=== PATIENT | male | born 1960 | race Asian ===

== ENCOUNTER → 2017-05-09 | Outpatient (CLI) | payer MEDICARE | LOC: M CARPUL 09:53 | DX: R94.31 Abnormal electrocardiogram [ECG] [EKG] (principal); R93.1 Abnormal findings on diagnostic imaging of heart and coronary circulation | CPT/HCPCS: 93306 ==

== ENCOUNTER 2018-08-06 10:39 | Day surgery (SDC) | payer OTHER, MEDICARE ==
[~2018-08-06] VITALS: Ht 160 cm; Wt 83.5 kg
[~2018-08-06 10:39] MED LIST: ATOR80TA59 PO; BUPR10TASR PO; EXCETAB80 PO; LIDO5DIS41 TD; LORT5TAB PO; LOSA25TA14 PO; NAPR1TAB41 PO; NS 1,000 ML IV ONE; OMEP20CA3 PO; PRIL40CA PO; SING10TA32 PO; TRAZ-252 PO; ULTR50TA8 PO; WELL100T2 PO; ZOCO40TA PO; ZYLO300T6 PO
[2018-08-06] MEDS ORDERED: VITAD1000T PO (11:22)
[2018-08-06] MEDS ORDERED: PROPOFOL 200 MG/20 ML VIAL As Ordered ONE ×2 (12:03→12:24)
--- NOTE | 2018-08-06 12:30 | ROOR ---
Patient Name: Janel Moss Procedure Date: 08/06/2018 12:12 PM Date of : 1960 Age: 57 Room: [facility] Gender: Male Note Status: Finalized Procedure: Total Colonoscopy to Cecum Indications: High risk colon cancer surveillance: Personal history of colonic polyps, Last colonoscopy: 2016 Providers: Betito Gallardo MD Referring MD: MARISOL ROBBINS Requesting Provider: Medicines: Monitored Anesthesia Care Complications: No immediate complications. Procedure: Pre-Anesthesia Assessment: - The heart rate, respiratory rate, oxygen saturations, blood pressure, adequacy of pulmonary ventilation, and response to care were monitored throughout the procedure. The Colonoscope was introduced through the anus and advanced to the cecum, identified by appendiceal orifice and ileocecal valve. The colonoscopy was performed without difficulty. The patient tolerated the procedure well. The quality of the bowel preparation was excellent. Findings: The perianal and digital rectal examinations were normal. Non-bleeding internal hemorrhoids were found during retroflexion. The hemorrhoids were small and Grade I (internal hemorrhoids that do not prolapse). Multiple small and large-mouthed diverticula were found in the recto-sigmoid colon, sigmoid colon and descending colon. The exam was otherwise without abnormality on direct and retroflexion views. Impression: - Non-bleeding internal hemorrhoids. - Diverticulosis in the recto-sigmoid colon, in the sigmoid colon and in the descending colon. - The examination was otherwise normal on direct and retroflexion views. - No specimens collected. - The exam was otherwise normal to the cecum. Recommendation: - Patient has a contact number available for emergencies. The signs and symptoms of potential delayed complications were discussed with the patient. Return to normal activities tomorrow. Written discharge instructions were provided to the patient. - High fiber diet. - Discharge patient to home. - Continue present medications. - Repeat colonoscopy in 5 years for screening purposes. - Return to referring physician. - The findings and recommendations were discussed with the patient's family. Betito Gallardo MD Betito Gallardo MD 08/06/2018 12:29:44 PM Electronically signed by Betito Gallardo MD Number of Addenda: 0 Note Initiated On: 08/06/2018 12:12 PM Estimated Blood Loss: Estimated blood loss: none.
[2018-08-06 12:50] VITALS: BP 129/85
== END 2018-08-06 12:58 | disposition home or self-care (01) ==
LOC: M OPP 10:39
PROVIDERS: ATTEND Internal Medicine Gastroenterology
DX: Z12.11 Encounter for screening for malignant neoplasm of colon (principal); Z86.010 Personal history of colon polyps; K64.0 First degree hemorrhoids; K57.30 Diverticulosis of large intestine without perforation or abscess without bleeding

== ENCOUNTER → 2021-10-24 | Outpatient (REF) ==
[~2021-10-24] MED LIST changes: +CHOL100029 PO; +LOSA25TA13 PO; -LOSA25TA14 PO; -NS 1,000 ML IV ONE; +OMEP1CAP73 PO; -OMEP20CA3 PO
== END ==
LOC: M RAD 09:52
PROVIDERS: ATTEND Physician Assistant Medical
DX: R06.00 Dyspnea, unspecified (principal)

== ENCOUNTER 2021-11-08 10:35 | Emergency (ER) | payer MEDICARE, OTHER ==
[~2021-11-08] VITALS: Ht 160 cm; Wt 88.5 kg
[2021-11-08 12:49] LABS: BASO # 0.1 10^3/uL (0.0-0.2); BASO % 0.7 % (0.0-1.0); EOS # 0.7 10^3/uL (0.0-0.5); HEMATOCRIT 54.5 % (42.0-52.0); HEMOGLOBIN 18.4 g/dl (13.5-17.5); LYMPH # 2.2 10^3/uL (1.5-5.0); LYMPH % 21.7 % (24.0-44.0); MEAN CORPUSCULAR HEMOGLOBIN 28.4 pg (27.0-33.0); MEAN CORPUSCULAR HGB CONC 33.8 g/dl (32.0-36.5); MONO # 0.6 10^3/uL (0.0-0.8); MONO % 6.3 % (2.0-8.0); NEUTROPHILS # 6.4 10^3/uL (1.5-8.5); PLATELET COUNT, AUTOMATED 282 10^3/uL (150-450); RED BLOOD COUNT 6.49 10^6/uL (4.30-6.10)
[2021-11-08 13:13] LABS: C REACTIVE PROTEIN QUANTITATIV 0.47 MG/DL (0.00-0.30); CREATININE FOR GFR 1.44 MG/DL (0.70-1.30); GLOMERULAR FILTRATION RATE 53.3 (>49); POTASSIUM SERUM 4.5 MEQ/L (3.5-5.1); URIC ACID 6.5 MG/DL (3.5-7.2)
[2021-11-08 13:26] LABS: ERYTHROCYTE SEDIMENTATION RATE 1 mm/hr (0-20)
[2021-11-08] MEDS ORDERED: PRED20TA PO (13:34)
[2021-11-08 14:00] VITALS: BP 130/83
== END 2021-11-08 14:16 | disposition home or self-care (01) ==
LOC: M ED 10:35
DX: M10.062 Idiopathic gout, left knee (principal); I10 Essential (primary) hypertension; M17.12 Unilateral primary osteoarthritis, left knee; Z79.899 Other long term (current) drug therapy

== ENCOUNTER → 2021-12-19 | Outpatient (REF) | payer MEDICARE, OTHER ==
[~2021-12-19] MED LIST changes: +PRED20TA PO
[2021-12-19 15:45] LABS: APPEARANCE, URINE MANUAL CLEAR (CLEAR); COLOR, URINE MANUAL YELLOW (YELLOW)
[2021-12-19 15:46] LABS: BILIRUBIN, URINE MANUAL NEGATIVE (NEGATIVE); GLUCOSE, URINE (UA) MANUAL NEGATIVE (NEGATIVE); LEUKOCYTE ESTERASE, URINE MAN NEGATIVE (NEGATIVE); NITRITE, URINE MANUAL NEGATIVE (NEGATIVE); UROBILINOGEN, URINE MANUAL NORMAL (NORMAL)
[2021-12-19 15:47] LABS: BLOOD URINE MANUAL NEGATIVE (NEGATIVE); KETONE, URINE MANUAL 1+ mg/dL (NEGATIVE); PROTEIN, URINE MANUAL TRACE mg/dL (NEGATIVE)
[2021-12-19 16:12] LABS: BACTERIA, URINE MOD AMOUNT; MUCUS, URINE MOD AMOUNT (NEGATIVE); RBC, URINE 0-1 /hpf (0-3); SQUAMOUS EPITHELIAL CELL URINE SMALL AMOUNT /hpf (SMALL AMT); WBC, URINE 0-1 /hpf (0-3)
== END ==
LOC: M SMT 15:23
PROVIDERS: ATTEND Physician Assistant
DX: R31.9 Hematuria, unspecified (principal)

== ENCOUNTER → 2022-03-23 | Outpatient (CLI) | payer OTHER | LOC: M RAD 13:53 | PROVIDERS: ATTEND Physician Assistant Medical | DX: Z12.2 Encounter for screening for malignant neoplasm of respiratory organs (principal); Z87.891 Personal history of nicotine dependence; R31.9 Hematuria, unspecified; J43.9 Emphysema, unspecified; K44.9 Diaphragmatic hernia without obstruction or gangrene; K76.0 Fatty (change of) liver, not elsewhere classified; N20.0 Calculus of kidney; K57.30 Diverticulosis of large intestine without perforation or abscess without bleeding ==

== ENCOUNTER → 2022-06-27 | Outpatient (CLI) | payer MEDICARE, OTHER ==
[~2022-06-27] MED LIST changes: +MONT-5 PO; +SIMV-254 PO; -SING10TA32 PO; -ZOCO40TA PO
== END ==
LOC: M SLEEP 20:00
PROVIDERS: ATTEND Physician Assistant Medical
DX: G47.33 Obstructive sleep apnea (adult) (pediatric) (principal)

== ENCOUNTER → 2022-12-07 | Outpatient (CLI) | payer OTHER ==
[~2022-12-07] MED LIST changes: +CHLO125TA PO; +CYCL-707 PO; +IBUP-1022 PO; +METF750T36; +METO1TAB32; +ROSU40TA4
== END ==
LOC: M SLEEP 20:00
PROVIDERS: ATTEND Physician Assistant Medical
DX: G47.33 Obstructive sleep apnea (adult) (pediatric) (principal)

== ENCOUNTER 2022-12-16 09:56 | Emergency (ER) | payer MEDICARE, OTHER ==
[~2022-12-16] VITALS: Ht 160 cm; Wt 79.1 kg
[2022-12-16 09:56] VITALS: TEMP 96.7
[~2022-12-16 09:56] MED LIST changes: -CHLO125TA PO; -IBUP-1022 PO; -METF750T36; -METO1TAB32; -ROSU40TA4
[2022-12-16] MEDS ORDERED: ONDANSETRON 4MG 2ML VIAL IV ONE (10:25)
[2022-12-16] MEDS ORDERED: MORPHINE 4 MG/ML 1ML VIAL IV ONE (10:25)
[2022-12-16] MEDS ORDERED: NS 500 ML IV ONE (10:25)
[2022-12-16 10:40] LABS: BASO # 0.1 10^3/uL (0.0-0.2); BASO % 0.8 % (0.0-1.0); EOS # 0.6 10^3/uL (0.0-0.5); EOS % 6.9 % (0.0-3.0); HEMATOCRIT 46.7 % (42.0-52.0); HEMOGLOBIN 16.6 g/dl (13.5-17.5); LYMPH # 2.2 10^3/uL (1.5-5.0); LYMPH % 24.5 % (24.0-44.0); MEAN CORPUSCULAR HEMOGLOBIN 30.2 pg (27.0-33.0); MEAN CORPUSCULAR HGB CONC 35.5 g/dl (32.0-36.5); MEAN CORPUSCULAR VOLUME 84.9 fl (80.0-96.0); MONO # 0.7 10^3/uL (0.0-0.8); MONO % 7.7 % (2.0-8.0); NEUTROPHILS # 5.5 10^3/uL (1.5-8.5); NEUTROPHILS % 59.8 % (36.0-66.0); PLATELET COUNT, AUTOMATED 250 10^3/uL (150-450); WHITE BLOOD COUNT 9.2 10^3/uL (4.0-10.0)
[2022-12-16] MEDS ORDERED: METO1TAB32 (10:55)
[2022-12-16] MEDS ORDERED: METF750T36 (10:55)
[2022-12-16] MEDS ORDERED: CHLO125TA PO (10:55)
[2022-12-16] MEDS ORDERED: ROSU40TA4 (10:55)
[2022-12-16] MEDS ORDERED: KETOROLAC 30 MG/ML 1ML VIAL IV ONE (11:00)
[2022-12-16] MEDS ORDERED: ISOVUE-370 76% 100ML VIAL As Ordered ONE (11:12)
[2022-12-16 11:15] VITALS: BP 123/79
[2022-12-16 11:41] VITALS: O2SAT 94
[2022-12-16] MEDS ORDERED: CYCL-707 PO (12:27)
[2022-12-16] MEDS ORDERED: CYCLOBENZAPRINE 10MG TABLET PO ONE (12:30)
[2022-12-16] MEDS ORDERED: IBUP-1022 PO (12:31)
== END 2022-12-16 12:42 | disposition home or self-care (01) ==
LOC: M ED 09:56
DX: R07.9 Chest pain, unspecified (principal); M54.9 Dorsalgia, unspecified; R91.8 Other nonspecific abnormal finding of lung field; I10 Essential (primary) hypertension; E78.5 Hyperlipidemia, unspecified; F41.9 Anxiety disorder, unspecified; F32.A Depression, unspecified; Z91.013 Allergy to seafood; Z79.899 Other long term (current) drug therapy; Z79.84 Long term (current) use of oral hypoglycemic drugs
CPT/HCPCS: 71045; 71275; 80047; 84484; 85025; 93005; 93041; 94760; 96374; 99285; J1885; Q9967

== ENCOUNTER 2023-04-27 20:36 | Emergency (ER) | payer OTHER ==
[~2023-04-27] VITALS: TEMP 98.1; Ht 160 cm; Wt 78.6 kg
[~2023-04-27 20:36] MED LIST changes: +CHLO125TA PO; +IBUP-1022 PO; +METF750T36; +METO1TAB32; +ROSU40TA4 PO
[2023-04-27 21:29] LABS: HEMATOCRIT 48.8 % (42.0-52.0); HEMOGLOBIN 17.3 g/dl (13.5-17.5); MEAN CORPUSCULAR HEMOGLOBIN 29.5 pg (27.0-33.0); MEAN CORPUSCULAR HGB CONC 35.5 g/dl (32.0-36.5); MEAN CORPUSCULAR VOLUME 83.3 fl (80.0-96.0); PLATELET COUNT, AUTOMATED 267 10^3/uL (150-450); RED BLOOD COUNT 5.86 10^6/uL (4.30-6.10); WHITE BLOOD COUNT 8.8 10^3/uL (4.0-10.0)
[2023-04-27 21:46] LABS: ETHYL ALCOHOL (ETHANOL) < 0.003 % (0.000-0.010)
[2023-04-27 21:48] LABS: ALBUMIN 3.6 G/DL (3.2-5.2); ALKALINE PHOSPHATASE 86 U/L (46-116); ALT/SGPT 56 U/L (7.0-40); AST/SGOT 45 U/L (<34); BILIRUBIN,DIRECT 0.2 MG/DL (<0.4); BILIRUBIN,TOTAL 0.5 MG/DL (0.3-1.2); BLOOD UREA NITROGEN 13 MG/DL (9-23); CALCIUM LEVEL 8.8 MG/DL (8.3-10.6); CARBON DIOXIDE LEVEL 24 MMOL/L (20-31); CHLORIDE LEVEL 107 MMOL/L (98-107); CREATININE FOR GFR 0.93 MG/DL (0.70-1.30); GLOMERULAR FILTRATION RATE > 60.0 (>49); GLUCOSE, FASTING 176 MG/DL (74-106); POTASSIUM SERUM 3.6 MMOL/L (3.5-5.1); SALICYLATE LEVEL < 3.0 MG/DL (<30); SODIUM LEVEL 138 MMOL/L (136-145); TOTAL PROTEIN 6.6 G/DL (5.7-8.2)
[2023-04-27 21:50] LABS: THYROID STIMULATING HORMONE 2.301 uIU/ML (0.55-4.78)
[2023-04-27] MEDS ORDERED: BUPR15TASR PO (23:28)
[2023-04-27] MEDS ORDERED: LOSA100T46 PO (23:28)
[2023-04-27] MEDS ORDERED: OMEP40CA5 PO (23:28)
[2023-04-27] MEDS ORDERED: ALLO300T2 PO (23:28)
[2023-04-27] MEDS ORDERED: METF10004 PO (23:28)
[2023-04-27] MEDS ORDERED: REFR0.5D8 OU (23:28)
[2023-04-27] MEDS ORDERED: HOME MED LIST COMPLETE! XX SCH (23:30)
[2023-04-28 02:34] LABS: AMPHETAMINES LEVEL URINE NEGATIVE (NEGATIVE); BARBITURATES URINE NEGATIVE (NEGATIVE); BENZODIAZEPINES URINE NEGATIVE (NEGATIVE)
[2023-04-28 02:35] LABS: CANNABINOIDS URINE NEGATIVE (NEGATIVE); METHADONE URINE NEGATIVE (NEGATIVE); OPIATES URINE NEGATIVE (NEGATIVE); PHENCYCLIDINE URINE NEGATIVE (NEGATIVE)
[2023-04-28 03:06] LABS: COCAINE METABOLITE URINE POSITIVE (NEGATIVE)
[2023-04-28 06:09] LABS: APPEARANCE, URINE CLEAR (CLEAR); BACTERIA, URINE AUTO NEGATIVE (NEGATIVE); BILIRUBIN, URINE AUTO NEGATIVE (NEGATIVE); BLOOD, URINE BLOOD NEGATIVE (NEGATIVE); COLOR, URINE YELLOW (YELLOW); GLUCOSE, URINE (UA) AUTO 3+ mg/dL (NEGATIVE); KETONE, URINE AUTO NEGATIVE (NEGATIVE); LEUKOCYTE ESTERASE, URINE AUTO NEGATIVE (NEGATIVE); MUCUS, URINE SMALL (NEGATIVE); NITRITE, URINE AUTO NEGATIVE (NEGATIVE); PROTEIN, URINE AUTO NEGATIVE (NEGATIVE); RBC, URINE AUTO 0 /HPF (0-3); SPECIFIC GRAVITY URINE AUTO 1.008 (1.002-1.035); SQUAMOUS EPITHELIAL CELL UR AU 0 /HPF (0-6); UROBILINOGEN, URINE AUTO 0.2 mg/dL (0.0-2.0); WBC, URINE AUTO 2 /HPF (0-3)
[2023-04-28] MEDS: ROSUVASTATIN 10 MG TAB (CRESTOR) PO SCH (13:40)
[2023-04-28] MEDS: allopurinoL 300 MG TAB PO SCH (13:40)
[2023-04-28] MEDS: LOSARTAN 50MG TABLET PO SCH (13:40)
[2023-04-28] MEDS: OMEPRAZOLE 20MG CAP PO SCH (14:37)
[2023-04-28] MEDS ORDERED: metFORMIN (GLUCOPHAGE) 1000MG TABLET PO SCH (21:00)
[2023-04-28] MEDS ORDERED: traZODone 50 MG TAB PO SCH (21:00)
[2023-04-28 22:42] VITALS: BP 163/98; TEMP 98.1; O2SAT 99
== END 2023-04-28 22:45 | disposition short-term general hospital (02) ==
LOC: M ED 20:36
DX: R45.851 Suicidal ideations (principal); F32.A Depression, unspecified; F10.10 Alcohol abuse, uncomplicated; F14.10 Cocaine abuse, uncomplicated; E11.9 Type 2 diabetes mellitus without complications; I10 Essential (primary) hypertension; F43.10 Post-traumatic stress disorder, unspecified; E78.5 Hyperlipidemia, unspecified; K21.9 Gastro-esophageal reflux disease without esophagitis; Z79.899 Other long term (current) drug therapy; Z91.013 Allergy to seafood

== ENCOUNTER → 2023-07-09 | Outpatient (CLI) | payer MEDICARE, OTHER ==
[~2023-07-09] MED LIST changes: +ALLO300T2 PO; +BUPR15TASR PO; +ISOVUE-370 76% 100ML VIAL As Ordered ONE; +LOSA100T46 PO; +METF10004 PO; +OMEP40CA5 PO; +REFR0.5D8 OU; -ROSU40TA4 PO; +ROSU40TA63 PO
== END ==
LOC: M RAD 16:29
PROVIDERS: ATTEND Family Medicine
DX: R91.1 Solitary pulmonary nodule (principal); K44.9 Diaphragmatic hernia without obstruction or gangrene; K76.0 Fatty (change of) liver, not elsewhere classified
CPT/HCPCS: 71260; Q9967

== ENCOUNTER 2024-06-04 05:35 | Emergency (ER) | payer OTHER ==
[~2024-06-04] VITALS: Ht 170.2 cm; Wt 85.0 kg
[~2024-06-04 05:35] MED LIST changes: -ISOVUE-370 76% 100ML VIAL As Ordered ONE; -ROSU40TA63 PO; +ROSU40TA81 PO
[2024-06-04 06:39] LABS: BASO # 0.1 10^3/uL (0.0-0.2); BASO % 0.7 % (0.0-1.0); EOS # 0.6 10^3/uL (0.0-0.5); EOS % 5.5 % (0.0-3.0); HEMATOCRIT 46.9 % (42.0-52.0); HEMOGLOBIN 17.1 g/dl (13.5-17.5); LYMPH # 1.9 10^3/uL (1.5-5.0); LYMPH % 16.4 % (24.0-44.0); MEAN CORPUSCULAR HEMOGLOBIN 30.1 pg (27.0-33.0); MEAN CORPUSCULAR HGB CONC 36.5 g/dl (32.0-36.5); MEAN CORPUSCULAR VOLUME 82.6 fl (80.0-96.0); MONO # 0.9 10^3/uL (0.0-0.8); NEUTROPHILS # 7.9 10^3/uL (1.5-8.5); NEUTROPHILS % 69.1 % (36.0-66.0); PLATELET COUNT, AUTOMATED 261 10^3/uL (150-450); RED BLOOD COUNT 5.68 10^6/uL (4.30-6.10); WHITE BLOOD COUNT 11.5 10^3/uL (4.0-10.0)
[2024-06-04] MEDS: HALOPERIDOL LACTATE 5MG/ML VIAL IM ONE (06:46)
[2024-06-04] MEDS: diphenhydrAMINE 50MG/ML VIAL IM ONE (06:46)
[2024-06-04 07:04] LABS: VENOUS BASE EXCESS -5.3 (-2.0-2.0); VENOUS HCO3 18.9 MMOL/L (23.0-27.0); VENOUS O2 SATURATION 98.7 % (60.0-80.0); VENOUS PARTIAL PRESSURE CO2 33.8 mmHg (38.0-50.0); VENOUS PARTIAL PRESSURE O2 138.6 mmHg (30.0-50.0); VENOUS PH 7.366 UNITS (7.330-7.430); VENOUS STANDARD HCO3 20.3 MMOL/L
[2024-06-04 07:07] LABS: ALBUMIN 3.8 G/DL (3.2-5.2); ALKALINE PHOSPHATASE 95 U/L (40-129); ALT/SGPT 56 U/L (7.0-40); AST/SGOT 60 U/L (<34); BILIRUBIN,DIRECT 0.3 MG/DL (<0.4); BILIRUBIN,TOTAL 1.1 MG/DL (0.3-1.2); BLOOD UREA NITROGEN 13 MG/DL (9-23); CALCIUM LEVEL 8.7 MG/DL (8.3-10.6); CARBON DIOXIDE LEVEL 19 MMOL/L (20-31); CHLORIDE LEVEL 103 MMOL/L (98-107); GLOMERULAR FILTRATION RATE 85.1 (>49); GLUCOSE, FASTING 259 MG/DL (74-106); POTASSIUM SERUM 3.8 MMOL/L (3.5-5.1); SODIUM LEVEL 138 MMOL/L (136-145); TOTAL PROTEIN 6.7 G/DL (5.7-8.2)
[2024-06-04 07:09] LABS: THYROID STIMULATING HORMONE 1.666 uIU/ML (0.55-4.78)
[2024-06-04 07:21] LABS: ETHYL ALCOHOL (ETHANOL) < 0.003 % (0.000-0.010)
[2024-06-04 07:22] LABS: SALICYLATE LEVEL < 3.0 MG/DL (<30)
[2024-06-04 07:45] LABS: OSMOLALITY SERUM 306 MOSM/KG (280-301)
[2024-06-04] MEDS: [UNRECOGNIZED DRUG - OTHER] IV ONE (08:16)
[2024-06-04] MEDS: NS 0.9% IV ONE (08:16)
[2024-06-04 08:18] LABS: CPK CREATINE PHOSPHOKINASE 1025 U/L (46-171)
[2024-06-04] MEDS: KETOROLAC 30 MG/ML 1ML VIAL IV ONE (09:35)
[2024-06-04 12:21] LABS: AMPHETAMINES LEVEL URINE NEGATIVE (NEGATIVE); BARBITURATES URINE NEGATIVE (NEGATIVE); BENZODIAZEPINES URINE NEGATIVE (NEGATIVE); CANNABINOIDS URINE NEGATIVE (NEGATIVE); METHADONE URINE NEGATIVE (NEGATIVE); OPIATES URINE NEGATIVE (NEGATIVE); PHENCYCLIDINE URINE NEGATIVE (NEGATIVE)
[2024-06-04 12:23] LABS: COCAINE METABOLITE URINE POSITIVE (NEGATIVE)
[2024-06-04] MEDS ORDERED: OVERDOSE RESCUE KIT XX SCH (14:30)
[2024-06-04 15:27] VITALS: BP 119/80; TEMP 98; O2SAT 97
== END 2024-06-04 15:24 | disposition home or self-care (01) ==
LOC: EDBD 05:35 → M ED 05:35
DX: F14.10 Cocaine abuse, uncomplicated (principal); E11.9 Type 2 diabetes mellitus without complications; I10 Essential (primary) hypertension; F32.A Depression, unspecified; R94.31 Abnormal electrocardiogram [ECG] [EKG]; M43.02 Spondylolysis, cervical region; Z79.84 Long term (current) use of oral hypoglycemic drugs; Z79.899 Other long term (current) drug therapy
CPT/HCPCS: 70450; 71045; 72125; 80048; 80076; 80143; 80307; 82077; 82140; 82550; 82803; 83605; 83930; 84443; 85025; 93005; 93041; 94760; 96361; 96372; 96374; 99285; J1200; J1630; J1885